=== PATIENT | male | born 1975 | race Caucasian/White ===

== ENCOUNTER 2022-12-21 15:11 | Emergency (ER) | payer BC ==
[~2022-12-21] VITALS: Ht 182.9 cm; Wt 81.8 kg
[2022-12-21 15:21] VITALS: TEMP 97.8
[2022-12-21 15:59] LABS: BASO # 0.1 K/mm3 (0.0-0.2); BASO % 0.4 % (0.0-2.0); EOS # 0.1 K/mm3 (0.0-0.7); EOS % 0.8 % (0.0-4.0); GRAN # 12.1 K/mm3 (1.4-6.5); GRAN % 83.3 % (42.2-75.2); HEMATOCRIT 46.9 % (42.0-52.0); HEMOGLOBIN 16.9 g/dl (13.5-18.0); LYMPH # 1.6 K/mm3 (1.2-3.4); LYMPH % 10.6 % (20.0-51.0); MEAN CELL VOLUME 87 fl (80.0-100.0); MEAN CORPUSCULAR HEMOGLOBIN 32 pg (27-31); MEAN CORPUSCULAR HGB CONC 36 g/dl (33.0-37.0); MEAN PLATELET VOLUME 9.3 fl (7.4-10.4); MONO # 0.7 K/mm3 (0.1-0.6); MONO % 4.5 % (1.7-9.3); PLATELET COUNT 275 K/mm3 (130-400); RED BLOOD COUNT 5.37 M/mm3 (4.20-5.60); REDCELL DISTRIBUTION WIDTH-CV 11.9 % (11.5-14.5)
[2022-12-21 16:08] LABS: COLLECTION METHOD CLEAN CATCH
[2022-12-21 16:16] LABS: URINE APPEARANCE Clear (CLEAR/HAZY); URINE BLOOD 1+ (NEGATIVE); URINE COLOR Yellow (YELLOW); URINE GLUCOSE Negative (NEGATIVE); URINE KETONE Negative (NEGATIVE); URINE NITRATE Negative (NEGATIVE); URINE PROTEIN(semi-quant) TRACE (NEGATIVE); URINE UROBILINOGEN 0.2 E.U/dL (0.2-1.0)
[2022-12-21 16:19] LABS: ALBUMIN 4.1 gm/dL (3.5-5.0); BILIRUBIN,TOTAL 0.4 mg/dL (0.2-1.2); C-REACTIVE PROTEIN 0.26 mg/dL (0.00-0.50); CALCIUM 9.3 mg/dL (8.4-10.2); CREATININE, serum 1.4 mg/dL (0.72-1.25); POTASSIUM 4.1 mmol/L (3.5-4.5); TOTAL PROTEIN 7.9 gm/dL (6.2-8.1)
[2022-12-21 16:52] LABS: MUCOUS Present (NOT PRESENT); SQUAMOUS EPITHELIAL None Seen /hpf (0-10); URINE BACTERIA None Seen /hpf (NONE SEEN)
[2022-12-21] MEDS ORDERED: FLOMAX 0.40.4 MG/CAP PO (17:56)
[2022-12-21] MEDS ORDERED: NORCO 325 MG-51 TAB PO (17:56)
[2022-12-21] MEDS ORDERED: CEPHALEXIN500 M1 PO (17:56)
[2022-12-21 18:16] VITALS: BP 148/98; PULSE 78
== END 2022-12-21 18:32 | disposition home or self-care (01) ==
LOC: COL.ER 15:11
PROVIDERS: Emergency Medicine
DX: N13.2 Hydronephrosis with renal and ureteral calculous obstruction (principal); F17.200 Nicotine dependence, unspecified, uncomplicated; Z28.310 Unvaccinated for COVID-19
CPT/HCPCS: J1885; J3010; J7030; Q9967

== ENCOUNTER 2024-01-05 16:27 | Emergency (ER) | payer BC ==
[~2024-01-05] VITALS: Ht 180.3 cm; Wt 76.8 kg
[~2024-01-05 16:27] MED LIST: CEPHALEXIN500 M1 PO; FLOMAX 0.40.4 MG/CAP PO; NORCO 325 MG-51 TAB PO; PYRIDIUM 100MG100 MG PO
[2024-01-05 16:29] VITALS: TEMP 97.4
[2024-01-05] MEDS ORDERED: NS 1,000 ML IV ONE (17:00)
[2024-01-05] MEDS ORDERED: Ketorolac 15 MG/ML VIAL IV ONE (17:00)
[2024-01-05 17:26] LABS: BASO % 0.4 % (0.0-2.0); EOS # 0.1 K/mm3 (0.0-0.7); EOS % 1.4 % (0.0-4.0); GRAN # 5.7 K/mm3 (1.4-6.5); GRAN % 73.5 % (42.2-75.2); HEMATOCRIT 47.7 % (42.0-52.0); HEMOGLOBIN 16.6 g/dl (13.5-18.0); LYMPH # 1.5 K/mm3 (1.2-3.4); LYMPH % 19.3 % (20.0-51.0); MEAN CELL VOLUME 92 fl (80.0-100.0); MEAN CORPUSCULAR HEMOGLOBIN 32 pg (27-31); MEAN CORPUSCULAR HGB CONC 35 g/dl (33.0-37.0); MONO # 0.4 K/mm3 (0.1-0.6); MONO % 5.1 % (1.7-9.3); PLATELET COUNT 236 K/mm3 (130-400); RED BLOOD COUNT 5.19 M/mm3 (4.20-5.60); REDCELL DISTRIBUTION WIDTH-CV 11.9 % (11.5-14.5)
[2024-01-05 17:52] LABS: BILIRUBIN,TOTAL 0.5 mg/dL (0.2-1.2); C-REACTIVE PROTEIN 0.07 mg/dL (0.00-0.50); CALCIUM 10.1 mg/dL (8.4-10.2); CREATININE, serum 0.97 mg/dL (0.72-1.25); POTASSIUM 4.4 mmol/L (3.5-4.5); TOTAL PROTEIN 7.2 gm/dL (6.2-8.1)
[2024-01-05 18:10] LABS: COLLECTION METHOD CLEAN CATCH
[2024-01-05 18:14] LABS: URINE APPEARANCE CLEAR (CLEAR/HAZY); URINE BLOOD NEGATIVE (NEGATIVE); URINE COLOR YELLOW (YELLOW); URINE GLUCOSE NEGATIVE (NEGATIVE); URINE KETONE TRACE (NEGATIVE); URINE NITRATE NEGATIVE (NEGATIVE); URINE PROTEIN(semi-quant) NEGATIVE (NEGATIVE); URINE UROBILINOGEN 0.2 E.U/dL (0.2-1.0)
[2024-01-05 19:04] VITALS: BP 107/83; PULSE 67
== END 2024-01-05 19:04 | disposition home or self-care (01) ==
LOC: COL.ER 16:27
PROVIDERS: Nurse Practitioner
DX: R10.13 Epigastric pain (principal); F17.210 Nicotine dependence, cigarettes, uncomplicated
CPT/HCPCS: J1885; J7030

== ENCOUNTER → 2024-01-08 | Outpatient (CLI) | payer BC | LOC: COL.RAD 05:04 | DX: K80.20 Calculus of gallbladder without cholecystitis without obstruction (principal) ==

== ENCOUNTER 2024-02-19 11:25 | Day surgery (SDC) | payer BC ==
[~2024-02-19] VITALS: Ht 177.8 cm; Wt 75.9 kg
[~2024-02-19 11:25] MED LIST changes: +LR 1,000 ML IV SCH; +Ondansetron 4 MG/2 ML VIAL IV PRN
[2024-02-19 11:43] VITALS: BP 100/77; PULSE 62; TEMP 97.4
--- NOTE | 2024-02-19 11:45 | NUR ---
Pt arrived with and child, VSS, bowels WNL for procedure per pt, RR even and unlabored; consents reviewed and signed, reviewed meds/pharm/allergies/history; to place IV and await procedure.
[2024-02-19] MEDS ORDERED: PROTONIX 40MG T40 MG PO (11:49)
[2024-02-19] MEDS ORDERED: Lidocaine PF 2% (20 MG/ML) 5 ML VIAL ONE (12:17)
[2024-02-19] MEDS ORDERED: fentaNYL 50 MCG/ML 2 ML VIAL ONE (12:20)
[2024-02-19 13:19] VITALS: BP 98/66; PULSE 63; TEMP 97.1
[2024-02-19 13:30] VITALS: BP 102/71; PULSE 60
--- NOTE | 2024-02-19 13:49 | NUR ---
1319- PATIENT RETUR[place] [facility] [place]. PT AWAKE AND ALERT. RESPIRATIONS UNLABORED. AMBULATED TO RECLINER CHAIR WITH 2:1 SBA. PT DENIES NAUSEA OR ABDOMINAL PAIN. HOOKED UP TO MONITOR AND VS OBTAINED. CALL LIGHT AT SIDE AND FAMILY PRESENT. 1330- PATIENT TOLERATING COFFEE AND MUFFIN WITHOUT NAUSEA OR DIFFICULTY SWALLOWING. 1335- D/C INSTRUCTIONS REVIEWED WITH PATIENT. PT VERBALIZED UNDERSTANDING AND A COPY OF INSTRUCTIONS PROVIDED IN D/C FOLDER. 1336- DR. CHANDLER IN ROOM SPEAKING WITH PATIENT. 1341- PATIENT DRESSES SELF. 1349- PATIENT DISCHARGED FROM UNIT VIA W/C TO A PERSONAL VEHICLE. PT LEFT HOSPITAL IN STABLE CONDITION.
== END 2024-02-19 13:49 | disposition home or self-care (01) ==
LOC: SDCO 11:25
DX: Z12.11 Encounter for screening for malignant neoplasm of colon (principal); K63.5 Polyp of colon; K29.50 Unspecified chronic gastritis without bleeding; K64.0 First degree hemorrhoids
CPT/HCPCS: J2704; J3010